=== PATIENT | female | born 1985 | race African-American/Black ===

== ENCOUNTER 2023-08-15 12:50 | Emergency (ER) | payer BC, OTHER ==
[~2023-08-15] VITALS: Ht 165.1 cm; Wt 81.6 kg
[2023-08-15] MEDS ORDERED: ACETAMINOPHEN 325 MG TABLET ONE (13:04)
[2023-08-15] MEDS: ACETAMINOPHEN 325 MG TABLET PO ONE (13:06)
[2023-08-15] MEDS ORDERED: IBUP-1955 PO (13:59)
[2023-08-15] MEDS ORDERED: CYCL5TAB PO (13:59)
[2023-08-15 14:15] VITALS: BP 133/80; TEMP 98; O2SAT 99
== END 2023-08-15 14:15 | disposition home or self-care (01) ==
LOC: ER 12:50
DX: S16.1XXA Strain of muscle, fascia and tendon at neck level, initial encounter (principal); S46.912A Strain of unspecified muscle, fascia and tendon at shoulder and upper arm level, left arm, initial encounter; S09.90XA Unspecified injury of head, initial encounter; R07.89 Other chest pain; Z79.1 Long term (current) use of non-steroidal anti-inflammatories (NSAID); Z79.899 Other long term (current) drug therapy; V49.9XXA Car occupant (driver) (passenger) injured in unspecified traffic accident, initial encounter; Y93.89 Activity, other specified; Y92.410 Unspecified street and highway as the place of occurrence of the external cause; Y99.8 Other external cause status
CPT/HCPCS: 70450; 71045; 72125; 73030; A4606; A4663